=== PATIENT | male | born 1990 | race Caucasian/White ===

== ENCOUNTER → 2019-09-25 | Outpatient (REF) ==
--- NOTE | 2019-09-25 16:58 | Diagnostic Imaging Report ---
INDICATION: Fall with left ankle injury and pain. EXAMINATION: AP, oblique and lateral views of left ankle are obtained. FINDINGS: There are multiple fairly well-corticated ossific fragments along the medial, anterior and posterior aspects of the ankle joint. There is possible acute disruption along the anterior cortex of the distal tibia extending to the joint surface. There is evidence of joint fluid. IMPRESSION: Probable old fracture fragments are present in the ankle joint with possible acute mild intra-articular avulsion fracture along the anterior distal tibia with associated ankle joint fluid. Dictated by: Dictated on workstation # [id number]
== END | disposition home or self-care (01) ==
LOC: OCC 16:04
PROVIDERS: ATTEND Nurse Practitioner Family
CPT/HCPCS: 73610

== ENCOUNTER → 2019-09-30 | Outpatient (CLI) | payer OTHER | LOC: ORTHO 11:00 | PROVIDERS: ATTEND Orthopaedic Surgery | DX: S93.412A Sprain of calcaneofibular ligament of left ankle, initial encounter (principal); Z98.890 Other specified postprocedural states ==